=== PATIENT | male | born 1990 | race Caucasian/White ===

== ENCOUNTER 2023-01-22 19:21 | Emergency (ER) | payer BC, SELFPAY ==
[2023-01-22 19:23] VITALS: BP 139/96; PULSE 107; RESP 18; TEMP 36.6; O2SAT 97; BMI 21.6
[2023-01-22 19:27] VITALS: BP 139/96; PULSE 107; RESP 18; TEMP 36.6; O2SAT 97
== END 2023-01-22 21:07 | disposition left against medical advice (07) ==
LOC: ED 21:12
PROVIDERS: PCP Family Medicine
DX: Z53.21 Procedure and treatment not carried out due to patient leaving prior to being seen by health care provider (principal)

== ENCOUNTER 2025-01-06 19:10 | Inpatient (IN) | payer MEDICAID, SELFPAY ==
[2025-01-06] VITALS (7 sets, daily range): BP systolic 118–160; BP diastolic 70–93; PULSE 79–114; RESP 12–18; TEMP 36.6; O2SAT 94–99; BMI 24.0; BMI 22.9
[2025-01-06 20:34] LABS: Absolute Lymphocyte Count 1.22 X10^3/uL (0.83-4.51); Basophil# 0.03 X10^3/uL; Basophil% 0.8 % (0-1); Eosinophil# 0.04 X10^3/uL; Eosinophils% 1.1 % (0-5); Hematocrit 48.5 % (40-54); Hemoglobin 17.1 g/dL (13.0-16.5); Lymphocyte # 1.22 X10^3/ul (0.83-4.51); Lymphocyte % 33.5 % (19-41); Mean Corp Hgb Conc 35.3 g/dL (32-36); Mean Corpuscular Hgb 35.4 pg (27.0-32.0); Mean Corpuscular Volume 100.4 fL (80-94); Mean Platelet Vol. 8.7 fl (6.2-12.0); Monocyte# 0.33 X10^3/uL; Monocyte% 9.1 % (0-10); NRBC Flagged by Analyzer 0 % (0-5); Neutrophil # 2.01 X10^3/uL (2.7-7.7); Neutrophil % 55.2 % (47-70); Platelet Count 213 K/mm3 (150-450); RBC Distribution Width CV 12.2 % (11.6-14.6); RBC Distribution Width SD 45.9 fl (35.1-43.9); Red Blood Count 4.83 M/mm3 (4.6-6.2); White Blood Count 3.6 K/mm3 (4.4-11.0)
[2025-01-06 20:51] LABS: Anion Gap 9 (5-15); BUN 11 mg/dL (7-18); BUN/Creat Ratio 11.2 RATIO (10-20); Calcium,Total 8.8 mg/dL (8.5-10.1); Chloride 101 mmol/L (98-107); Creatinine, Serum 0.98 mg/dL (0.70-1.30); EST Glomerular Filtration Rate 94 mL/min (>60); Est Glom Filt Rate - Afr Amer 114 mL/min (>60); Glucose 98 mg/dL (74-106); Potassium 4.1 mmol/L (3.5-5.1); Sodium Level 138 mmol/L (136-145)
--- NOTE | 2025-01-06 20:58 | EX.ED.DYSGE1 ---
HPI History of Present Illness Chief Complaint: ETOH Intox PFSH PFSH Medical History Anxiety and depression Tobacco use Alcohol abuse Home Medications ?Medication ?Instructions ?Recorded ?Last Taken ?Type NK 01/06/25 Unknown History Allergy/AdvReac Type Severity Reaction Status Date / Time raspberry Allergy Anaphylaxis Verified 01/06/25 19:12 Family History (Updated 01/06/25 @ 22:[address] Emperatriz Jin MD) Mother No problems noted. Father Alcohol abuse Surgical History History of hand surgery Social History (Updated 01/06/25 @ 22:[address] Emperatriz Jin MD) household members: other details: Lives with various friends, sleeps on their couches. Smoking Status: Current every day smoker tobacco type: cigarettes Smoking packs per day: 0.5 Smoking cigarettes per day: 10.0, e-cigarettes and smokeless tobacco Smokeless tobacco user: chewing tobacco and other alcohol intake: current alcohol intake frequency: 3 or more drinks per day details: 2-3/5 of vodka daily. substance use type: does not use EXAM Physical Exam Const Vital Signs: 01/06/25 19:12 01/06/25 20:10 01/06/25 20:18 Temperature 97.8 F Temperature Source Temporal Pulse Rate 114 H 102 H 104 H Respiratory Rate 18 14 18 Blood Pressure 160/93 H 118/70 125/79 H Blood Pressure Mean 115 86 94 Blood Pressure Source Monitor Blood Pressure Position Semi-Fowlers Blood Pressure Location Right Arm Pulse Ox 96 99 95 Oxygen Delivery Method Room Air Room Air Room Air 01/06/25 21:00 Temperature Temperature Source Pulse Rate 86 Respiratory Rate 18 Blood Pressure 139/81 H Blood Pressure Mean 100 Blood Pressure Source Blood Pressure Position Blood Pressure Location Pulse Ox 94 Oxygen Delivery Method Room Air MDM MDM MDM Narrative Medical decision making narrative: HISTORY OF PRESENT ILLNESS: 34-year-old male presents with concern for alcohol withdrawal requesting alcohol detox. Patient states he drinks approximately 2 to 3 fifths of vodka daily. His last drink was earlier today (approximately 6 PM). REVIEW OF SYSTEMS: Pertinent positives: Alcohol tox case Pertinent negatives: Chest pain, head trauma PHYSICAL EXAM: Nursing triage notes reviewed, Vital signs reviewed Constitutional: please see mdm HENT: MMM Eyes: Pupils equal round and reactive to light, Extraocular muscles intact Neck: No stridor, no JVD, full neck ROM Lungs: Clear to auscultation, No wheezing or rales. No increased work of breathing, no conversational dyspnea, no accessory muscle use, no nasal flaring. No respiratory distress noted Heart: Regular rate and rhythm, No murmurs, No rubs and No gallops, 2+ distal pulses (radial, femoral, posterior tibial) in all extremities Abdomen: Soft, there is no tenderness, rigidity, rebound or guarding, no obvious peritoneal signs, no palpable pulsatile abdominal masses, no auscultated abdominal bruit : No CVAT Extremities: No edema Neuro: No new focal neurological deficits, cranial nerves II through XII intact, 5/5 strength in all present extremities. Intact sensation to light touch in all present extremities, 2+ reflexes bilateral patella tendons. Skin: No rash or lesions noted MEDICAL DECISION MAKING: Chief Complaint: Alcohol intoxication External records reviewed: Reviewed prior ED records MDM Narrative: Patient was initially hemodynamically stable, tachycardic otherwise saturating well on room air. Exam unremarkable. Medical clearance labs were obtained. Patient was medically cleared. He is appropriate for detox admission CBC without leukocytosis, severe anemia, no thrombocytopenia. LFTs without evidence of severe alcohol abuse BMP without evidence of significant electrolyte abnormalities, no anion gap, no acute kidney injury. Urine tox cream negative Serum alcohol markedly elevated No signs of alcohol withdrawal Discussed with Dr. Jin. The patient and/or family, caregivers express understanding. The patient and/or family, caregivers agrees with the plan. Shared decision making: I will have a discussion with the patient and or visitors regarding risk/benefits of further testing or admission. They will be made aware of of the risk/benefits inherent in this decision they will be given the opportunity to voice understanding. Total critical care time today provided was at least 0 minutes. This excludes separately billable procedures. Critical care time (if documented) is secondary to the patient having high probability of clinically significant/life threatening deterioration in the patient's condition which required my urgent intervention. Impression: 1. Alcohol abuse 2. Encounter for detoxification admission 3. Elevated liver enzyme Dispo: Admit to floor This note was generated with [employer] dictation software. It may contain incorrect words, spelling, and punctuation that were not noted in review of the chart prior to signing. Lab Data Labs: Laboratory Results - last 24 hr 01/06/25 01/06/25 20:10 20:15 WBC 3.6 L RBC 4.83 Hgb 17.1 H Hct 48.5 MCV 100.4 H MCH 35.4 H MCHC 35.3 RDW Std Deviation 45.9 H RDW Coeff of Camille 12.2 Plt Count 213 MPV 8.7 Immature Gran % (Auto) 0.300 Neut % (Auto) 55.2 Lymph % (Auto) 33.5 [place] % (Auto) 9.1 Eos % (Auto) 1.1 Baso % (Auto) 0.8 Absolute Neuts (auto) 2.0 Absolute Lymphs (auto) 1.22 Nucleated RBC % 0 Sodium 138 Potassium 4.1 Chloride 101 Carbon Dioxide 27.0 Anion Gap 9 BUN 11 Creatinine 0.98 Estim Creat Clear Calc 122.30 Est GFR (MDRD) Af Amer 114 Est GFR (MDRD) Non-Af 94 BUN/Creatinine Ratio 11.2 Glucose 98 Calcium 8.8 Urine Opiates Screen NEGATIVE Urine Methadone Screen NEGATIVE Ur Barbiturates Screen NEGATIVE Ur Phencyclidine Scrn NEGATIVE Ur Amphetamines Screen NEGATIVE MDMA (Ecstasy) Screen NEGATIVE U Benzodiazepines Scrn NEGATIVE Urine Cocaine Screen NEGATIVE U Cannabinoids Screen NEGATIVE Ur Drug Screen Comment Ethyl Alcohol 417.0 H* Discharge Plan Disposition Disposition: Acute Care Hospital [facility] Discharge Date/Time: 01/06/25 23:00
[2025-01-06 21:00] LABS: Amphetamine Urine NEGATIVE (<1000 ng/mL); Barbiturate Urine VISTA NEGATIVE (< 200 ng/mL); Benzodiazepine Urine VISTA NEGATIVE (< 200 ng/mL); Cocaine Urine VISTA NEGATIVE (< 300 ng/mL); Ecstacy Urine VISTA NEGATIVE (< 500 ng/mL); Methadone Urine VISTA NEGATIVE (< 300 ng/mL); Opiates Urine NEGATIVE (< 300 ng/mL); PCP Urine NEGATIVE (< 25 ng/mL); THC Urine VISTA NEGATIVE (< 50 ng/mL); Vista UDS pH Range 6
--- NOTE | 2025-01-06 21:39 | HP.PCM.HOS_ITS ---
HPI - General General Date of Admission: 01/06/25 Date of Service: 01/06/25 Chief Complaint: EtOH withdrawal, EtOH abuse HPI Narrative The patient is a 34 y/o M w/ PMHx: Anxiety and Depression not taking medications but previously on, Tobacco use (Cigarette and chew), Alcohol abuse who presents to the [facility] ED on 01/06/25 w/ reported interest in attaining sober status. He notes normally he drinks 2-3/5 of vodka daily. He notes his last intake was ~ 6 pm prior to ED arrival. He denies any withdrawal symptoms. Workup in the ED included T97.8, heart rate 114, BP 160/93, respiratory rate 18, 96% room air with most recent repeat vitals heart rate 86, BP 139/81, respiratory rate 18, 94% room air, CBC with WBC 3.6, hemoglobin 17.1, MCV 100.4, platelet 213 without marked shift, unremarkable BMP, UDS negative, ethyl alcohol 417. [facility] Medical History Anxiety and depression Tobacco use Alcohol abuse Home Medications ?Medication ?Instructions ?Recorded ?Last Taken ?Type NK 01/06/25 Unknown History Allergy/AdvReac Type Severity Reaction Status Date / Time raspberry Allergy Anaphylaxis Verified 01/06/25 19:12 Family History (Updated 01/06/25 @ 22:[address] Emperatriz Jin MD) Mother No problems noted. Father Alcohol abuse Surgical History History of hand surgery Social History (Updated 01/06/25 @ 22:[address] Emperatriz Jin MD) household members: other details: Lives with various friends, sleeps on their couches. Smoking Status: Current every day smoker tobacco type: cigarettes Smoking packs per day: 0.5 Smoking cigarettes per day: 10.0, e-cigarettes and smokeless tobacco Smokeless tobacco user: chewing tobacco and other alcohol intake: current alcohol intake frequency: 3 or more drinks per day details: 2-3/5 of vodka daily. substance use type: does not use ROS ROS Narrative Admission Review of Systems: CONSTITUTIONAL: No weight loss, fever, chills, + weakness or fatigue. HEENT: Eyes: No visual loss, blurred vision, double vision or yellow sclerae. Ears, Nose, Throat: No hearing loss, sneezing, congestion, runny nose or sore throat. SKIN: No rash or itching, lesions, wounds. CARDIOVASCULAR: No chest pain, chest pressure or chest discomfort, palpitations, edema, orthopnea, syncopal events. RESPIRATORY: No shortness of breath, cough or sputum, wheezing, hemoptysis. GASTROINTESTINAL: No anorexia, nausea, vomiting or diarrhea, abdominal pain, melena, BRBPR. GENITOURINARY: No dysuria, frequency, urgency or retention. NEUROLOGICAL: + Chronic left hand paresthesias. No headache, dizziness, syncope, paralysis, ataxia, focal weakness, change in bowel or bladder control, seizure. MUSCULOSKELETAL: + muscle, back pain, joint pain or stiffness. HEMATOLOGIC: No anemia, bleeding or bruising. LYMPHATICS: No enlarged nodes. No history of splenectomy. PSYCHIATRIC: + History of anxiety and depression. ENDOCRINOLOGIC: No reports of sweating, cold or heat intolerance. No polyuria or polydipsia. ALLERGIES: + History of anaphylaxis. Vital Signs Vital Signs Vital Signs: 01/06/25 19:12 01/06/25 20:10 01/06/25 20:18 Temperature 97.8 F Temperature Source Temporal Pulse Rate 114 H 102 H 104 H Respiratory Rate 18 14 18 Blood Pressure 160/93 H 118/70 125/79 H Blood Pressure Mean 115 86 94 Blood Pressure Source Monitor Blood Pressure Position Semi-Fowlers Blood Pressure Location Right Arm Pulse Ox 96 99 95 Oxygen Delivery Method Room Air Room Air Room Air 01/06/25 21:00 Temperature Temperature Source Pulse Rate 86 Respiratory Rate 18 Blood Pressure 139/81 H Blood Pressure Mean 100 Blood Pressure Source Blood Pressure Position Blood Pressure Location Pulse Ox 94 Oxygen Delivery Method Room Air Weight Weight: 182 lb 11.2 oz Body Mass Index (BMI) 24.0 Physical Exam Narrative Physical Examination: General: Awake, alert, oriented x 3 and cooperative, seated upright in the ED bed, fatigued, denies any acute alcohol withdrawal symptoms Skin: Normal color, normal turgor, no icterus, no cyanosis. HEENT: AT/NC, EOMI, PERRLA, moderately dry MM, no carotid bruits or JVD noted. Lungs: Mildly diminished, greater bases, appropriate effort, occasional end expiratory wheeze. Heart: Mildly tachycardic with regular rhythm; no gallop, rub audible. Abdomen: Soft, NTTP, ND, hyperactive BS, no appreciated HSM. Extremities: No cyanosis, clubbing, or edema. Neurological: Patient awake, alert, oriented as noted, cognitive function intact; pupils equally reactive to light and accommodation, cranial nerves gross normal, moving all 4 extremities, no focal deficits, strength preserved although patient is fatigued as intoxicant. Psychiatric: Affect appears fatigued, no acute evidence of depressive or anxiety feelings but does have underlying history. Results Lab / Micro Data 01/06/25 20:10 01/06/25 20:10 Labs: Laboratory Results - last 24 hr 01/06/25 20:10: WBC 3.6 L, RBC 4.83, Hgb 17.1 H, Hct 48.5, MCV 100.4 H, MCH 35.4 H, MCHC 35.3, RDW Std Deviation 45.9 H, RDW Coeff of Camille 12.2, Plt Count 213, MPV 8.7, Immature Gran % (Auto) 0.300, Neut % (Auto) 55.2, Lymph % (Auto) 33.5, [place]ley % (Auto) 9.1, Eos % (Auto) 1.1, Baso % (Auto) 0.8, Absolute Neuts (auto) 2.0, Absolute Lymphs (auto) 1.22, Nucleated RBC % 0, Sodium 138, Potassium 4.1, Chloride 101, Carbon Dioxide 27.0, Anion Gap 9, BUN 11, Creatinine 0.98, Estim Creat Clear Calc 122.30, Est GFR (MDRD) Af Amer 114, Est GFR (MDRD) Non-Af 94, BUN/Creatinine Ratio 11.2, Glucose 98, Calcium 8.8, Ethyl Alcohol 417.0 H* 01/06/25 20:15: Urine Opiates Screen NEGATIVE, Urine Methadone Screen NEGATIVE, Ur Barbiturates Screen NEGATIVE, Ur Phencyclidine Scrn NEGATIVE, Ur Amphetamines Screen NEGATIVE, MDMA (Ecstasy) Screen NEGATIVE, U Benzodiazepines Scrn NEGATIVE, Urine Cocaine Screen NEGATIVE, U Cannabinoids Screen NEGATIVE, Ur Drug Screen Comment Assessment & Plan Assessment/Plan (1) Admitted to alcohol detoxification center: PLAN: Plan The patient is a 34 y/o M w/ PMHx: Anxiety and Depression not taking medications but previously on, Tobacco use (Cigarette and chew), Alcohol abuse who presents to the [facility] ED on 01/06/25 w/ reported interest in attaining sober status. #1. Acute EtOH Abuse with Impending Withdrawal: Will admit to [facility], routine labs obtained in the ED upon presentation, will request liver panel additionally. Given interest in sobriety, will initiate and continue on protocol with taper course of Phenobarbital, as needed gabapentin, Catapres, Bentyl, Vistaril, IV fluids, IV antiemetics, Tylenol as needed for pain. Will consult Case management for assistance for transition to next level of rehabilitation care. Mag, phos pending. Maintain on CIWA protocol concurrently. #2. Elevated BP without hypertensive diagnosis: Upon arrival initial BP elevated above goal, likely secondary to acute presentation, improved, continue to monitor. #3. Leukopenia, acute: Admission CBC with WBC 3.6, suspect likely secondary to alcohol abuse, encourage continued outpatient follow-up and establishment with primary care physician. #4. Anxiety and depression: Notes history but took himself off medications and has not taken them in some time, case management/180 consulted and would benefit from counseling and therapy as this likely is contributing to his alcohol abuse. #5. Tobacco Abuse: Encouraged cessation, inpatient consultation per RT, NR if desired. #6. DVT prophylaxis: Low risk, encourage ambulation. Charges/Coding Visit Charges Inpatient E&M: 86056 Init Hosp L2
[2025-01-06 22:07] LABS: AST(SGOT) 466 U/L (15-37); Alanine Aminotransfer ALT/SGPT 367 U/L (16-61); Albumin, Serum 4.1 g/dL (3.2-5.0); Alkaline Phosphatase 118 U/L (45-117); Bilirubin, Direct 0.14 mg/dL (0.00-0.30); Globulin 4.3 g/dL (2.2-4.2); Magnesium 2.3 mg/dL (1.6-2.6); Phosphorus 3.4 mg/dL (2.5-4.9); Protein, Total 8.4 g/dL (6.4-8.2)
[2025-01-06] MEDS: Phenobarbital 32.4 MG Tablet 64.8 MG PO (23:22)
[2025-01-06] MEDS: Gabapentin 300 MG Capsule PO (23:22)
[2025-01-06] MEDS: Ondansetron 8 MG Tablet PO (23:22)
[2025-01-06] MEDS: traZODone 100 MG Tablet PO (23:22)
[2025-01-07] MEDS: Phenobarbital 32.4 MG Tablet 64.8 MG PO ×5 (03:03→19:33)
[2025-01-07] MEDS: hydrOXYzine PAM 25 MG Capsule 50 MG PO ×2 (03:03→13:11)
[2025-01-07 03:06] VITALS: BP 114/70; PULSE 77; RESP 16; TEMP 36.5; O2SAT 96
[2025-01-07] MEDS: Gabapentin 300 MG Capsule PO (06:44)
[2025-01-07 09:49] LABS: ALB/GLOB Ratio 0.9 RATIO (0.9-2.4); AST(SGOT) 369 U/L (15-37); Alanine Aminotransfer ALT/SGPT 313 U/L (16-61); Albumin, Serum 3.5 g/dL (3.2-5.0); Alkaline Phosphatase 104 U/L (45-117); Anion Gap 9 (5-15); BUN 11 mg/dL (7-18); BUN/Creat Ratio 12.1 RATIO (10-20); Calcium,Total 8.4 mg/dL (8.5-10.1); Chloride 101 mmol/L (98-107); Creatinine, Serum 0.91 mg/dL (0.70-1.30); EST Glomerular Filtration Rate 103 mL/min (>60); Est Glom Filt Rate - Afr Amer 124 mL/min (>60); Estimated Creatinine Clearance 133.52 ml/min; Globulin 3.9 g/dL (2.2-4.2); Glucose 75 mg/dL (74-106); Potassium 3.9 mmol/L (3.5-5.1); Protein, Total 7.4 g/dL (6.4-8.2); Sodium Level 137 mmol/L (136-145)
[2025-01-07 10:28] VITALS: BP 127/80; PULSE 89; RESP 14; TEMP 37.4; O2SAT 92
[2025-01-07] MEDS: Thiamine Hydrochloride 100 MG Tablet PO (10:31)
[2025-01-07] MEDS: Multivitamins,Ther W-Minerals Tablet 1 TABLET PO (10:31)
[2025-01-07] MEDS: Folic Acid 1 MG Tablet PO (10:31)
[2025-01-07] MEDS: Ibuprofen 600 MG Tablet PO (10:35)
[2025-01-07] MEDS: 0.9% Saline Lock 10 ML Syringe IV (10:37)
[2025-01-07] MEDS: Acetaminophen 325 MG Tablet 650 MG PO (13:11)
--- NOTE | 2025-01-07 14:34 | PN_ITS ---
Subjective Subjective Patient seen and examined. He had no active complaints and felt well. He denied any shakes, tremors, palpitations, nausea, vomiting or any other symptoms. Review of systems is otherwise negative. Objective Data Objective Data Vital Signs: Vital Signs Temp Pulse Resp BP Pulse Ox O2 Del Method 99.3 F H 89 14 127/80 H 92 Room Air 01/07/25 10:28 01/07/25 10:28 01/07/25 10:28 01/07/25 10:28 01/07/25 10:28 01/07/25 10:44 Oxygen Delivery Method Room Air Weight: 178 lb 9.191 oz Body Mass Index (BMI) 22.9 Intake & Output: Intake and Output for Last 24 Hours 01/05/25 01/06/25 01/07/25 23:59 23:59 23:59 Intake Total 600 / 600 Balance 600 / 600 Lab / Micro Data 01/06/25 20:10 01/07/25 08:50 Labs: Laboratory Results - last 24 hr 01/06/25 20:10: WBC 3.6 L, RBC 4.83, Hgb 17.1 H, Hct 48.5, MCV 100.4 H, MCH 35.4 H, MCHC 35.3, RDW Std Deviation 45.9 H, RDW Coeff of Camille 12.2, Plt Count 213, MPV 8.7, Immature Gran % (Auto) 0.300, Neut % (Auto) 55.2, Lymph % (Auto) 33.5, [place] % (Auto) 9.1, Eos % (Auto) 1.1, Baso % (Auto) 0.8, Absolute Neuts (auto) 2.0, Absolute Lymphs (auto) 1.22, Nucleated RBC % 0, Sodium 138, Potassium 4.1, Chloride 101, Carbon Dioxide 27.0, Anion Gap 9, BUN 11, Creatinine 0.98, Estim Creat Clear Calc 122.30, Est GFR (MDRD) Af Amer 114, Est GFR (MDRD) Non-Af 94, BUN/Creatinine Ratio 11.2, Glucose 98, Calcium 8.8, Ethyl Alcohol 417.0 H* 01/06/25 20:15: Urine Opiates Screen NEGATIVE, Urine Methadone Screen NEGATIVE, Ur Barbiturates Screen NEGATIVE, Ur Phencyclidine Scrn NEGATIVE, Ur Amphetamines Screen NEGATIVE, MDMA (Ecstasy) Screen NEGATIVE, U Benzodiazepines Scrn NEGATIVE, Urine Cocaine Screen NEGATIVE, U Cannabinoids Screen NEGATIVE, Ur Drug Screen Comment 01/06/25 21:46: Phosphorus 3.4, Magnesium 2.3, Total Bilirubin 0.30, Direct Bilirubin 0.14, AST 466 H, ALT 367 H, Alkaline Phosphatase 118 H, Total Protein 8.4 H, Albumin 4.1, Globulin 4.3 H 01/07/25 08:50: Sodium 137, Potassium 3.9, Chloride 101, Carbon Dioxide 27.0, Anion Gap 9, BUN 11, Creatinine 0.91, Estim Creat Clear Calc 133.52, Est GFR (MDRD) Af Amer 124, Est GFR (MDRD) Non-Af 103, BUN/Creatinine Ratio 12.1, Glucose 75, Calcium 8.4 L, Total Bilirubin 0.60, AST 369 H, ALT 313 H, Alkaline Phosphatase 104, Total Protein 7.4, Albumin 3.5, Globulin 3.9, Albumin/Globulin Ratio 0.9 Physical Exam Const alert, oriented x3, no apparent distress and well nourished General Appearance: cooperative and well developed HEENT normocephalic, head/scalp atraumatic, moist oral mucous membranes, oropharynx normal and gingiva normal Eyes PERRL and EOMs intact bilaterally Neck no lymphadenopathy, supple and no JVD Lymph Lymphatic: no lymphadenopathy noted and no lymphedema noted Resp normal respiratory effort, normal air movement and clear to auscultation bilaterally Cardio regular rate, regular rhythm, S1 normal heart sound, S2 normal heart sound and no murmurs GI normal to inspection, nondistended, normoactive bowel sounds, soft to palpation, non-tender and non-distended Extremity normal capillary refill, no clubbing, cyanosis or edema and no calf tenderness General Extremity: no tenderness to palpation of joints or extremities Skin General Skin Exam: no breakdown Neuro CN's II-XII intact bilaterally, no focal motor deficits, no sensory deficits noted and deep tendon reflexes 2+ bilaterally Motor Exam: strength 5/5 throughout and general weakness Psych thought process normal, cooperative and affect normal Appearance: appropriate Assessment & Plan Assessment/Plan (1) Admitted to alcohol detoxification center: PLAN: Plan #Acute alcohol withdrawal * on alcohol withdrawal protocol with phenobarbital * on thiamine, folic acid and multivite. Adjunctive meds for symptomatic relief. * monitor CIWA score * #Elevated liver enzymes: AST and ALT are trending downwards. Likely due to chronic alcohol abuse. Will trend and monitor. DVT prophylaxis: low risk, encourage to ambulate Charges/Coding Visit Charges Inpatient E&M: 35817 Subs Hosp L2
[2025-01-07 15:13] VITALS: BP 120/72; PULSE 68; RESP 15; TEMP 36.7; O2SAT 94
--- NOTE | 2025-01-07 15:41 | CHAPLAIN ---
Type of Pastoral Visit _x__ Initial Visit ___ Follow-up Visit ___ On-call Visit ___ General Patient Visit ___ Spiritual Assessment ___ Family Conference ___ Bereavement ___ Rapid Response ___ Code Blue ___ Other (describe below) Pastoral Care Referral From _x__ Patient ___ Family ___ Nurse ___ Physician ___ Spray Machine Tender ___ Memorial Designer ___ Other (describe below) Sacrament/Intervention _x__ Active listening ___ Anointing ___ Church ___ Bereavement ___ Communion _x__ Kayla exploration ___ _x__ Life review _x__ Prayer ___ Reconciliation ___ Sacrament of Sick _x__ Supportive presence ___ Wedding ___ Other (describe below) Pastoral Comments patient is here for alcohol detox and is open to having spiritual care support; pt describes a previous [place] [facility] [place] he had six months of sobriety; pt was laid off of work and lost privileges to seeing his daughter which led to his poor decisions and return to heavy drinking; pt expresses disappointment and shame of self in letting this happen and desires to start over; pt states that he needs to get back to his religious support and turning away from 'peer pressure'; pt goal is to get steady work again and to be able to see his daughter; pt is open and willing to receive help through prayer and emotional expression
[2025-01-07 19:38] VITALS: BP 133/89; PULSE 60; RESP 13; TEMP 36.4; O2SAT 96
[2025-01-08] VITALS (9 sets, daily range): BP systolic 118–136; BP diastolic 81–90; PULSE 52–96; RESP 14–18; TEMP 36.3–36.7; O2SAT 94–98
[2025-01-08] MEDS: Phenobarbital 32.4 MG Tablet 64.8 MG PO ×7 (01:16→23:26)
[2025-01-08] MEDS: 0.9% Saline Lock 10 ML Syringe IV (01:18)
[2025-01-08] MEDS: hydrOXYzine PAM 25 MG Capsule 50 MG PO ×2 (01:23→09:07)
[2025-01-08] MEDS: Multivitamins,Ther W-Minerals Tablet 1 TABLET PO (08:22)
[2025-01-08] MEDS: Folic Acid 1 MG Tablet PO (08:22)
[2025-01-08] MEDS: Thiamine Hydrochloride 100 MG Tablet PO (08:22)
[2025-01-08] MEDS: Gabapentin 300 MG Capsule PO (09:07)
--- NOTE | 2025-01-08 11:26 | ADDICTION ---
Clinician met with pt to complete RAMP assessments and discuss d/c planning. Pt had been drinking from morning until night. His alcohol level in the ED was 417. Client initially agree to follow up with outpatient treatment but then after more discussion he decided to do residential tx. A referral was made to [facility] and the plan is for them to pick him up tomorrow morning. He wanted his roommate Jeannie to bring his clothes and phone. Her number is [phone]. i left a vm.
--- NOTE | 2025-01-08 11:54 | PN_ITS ---
Subjective Subjective Patient seen and examined. HE had no complaints and had an uneventful night. Review of systems otherwise negative. Objective Data Objective Data Vital Signs: Vital Signs Temp Pulse Resp BP Pulse Ox O2 Del Method 97.6 F L 63 14 134/82 H 94 Room Air 01/08/25 08:16 01/08/25 08:16 01/08/25 08:16 01/08/25 08:16 01/08/25 08:22 01/08/25 08:22 Oxygen Delivery Method Room Air Weight: 178 lb 9.191 oz Body Mass Index (BMI) 22.9 Intake & Output: Intake and Output for Last 24 Hours 01/06/25 01/07/25 01/08/25 23:59 23:59 23:59 Intake Total 600 / 1400 800 / 800 Balance 600 / 1400 800 / 800 Lab / Micro Data 01/06/25 20:10 01/07/25 08:50 Physical Exam Const alert, oriented x3, no apparent distress and well nourished General Appearance: cooperative and well developed HEENT normocephalic, head/scalp atraumatic, moist oral mucous membranes, oropharynx normal and gingiva normal Eyes PERRL and EOMs intact bilaterally Neck no lymphadenopathy, supple and no JVD Lymph Lymphatic: no lymphadenopathy noted and no lymphedema noted Resp normal respiratory effort, normal air movement and clear to auscultation bilaterally Cardio regular rate, regular rhythm, S1 normal heart sound, S2 normal heart sound and no murmurs GI normal to inspection, nondistended, normoactive bowel sounds, soft to palpation, non-tender and non-distended Extremity normal capillary refill, no clubbing, cyanosis or edema and no calf tenderness General Extremity: no tenderness to palpation of joints or extremities Skin General Skin Exam: no breakdown Neuro CN's II-XII intact bilaterally, no focal motor deficits, no sensory deficits noted and deep tendon reflexes 2+ bilaterally Motor Exam: strength 5/5 throughout and general weakness Psych thought process normal, cooperative and affect normal Appearance: appropriate Assessment & Plan Assessment/Plan (1) Admitted to alcohol detoxification center: PLAN: Plan #Acute alcohol withdrawal * on alcohol withdrawal protocol with phenobarbital * on thiamine, folic acid and multivite. Adjunctive meds for symptomatic relief. * monitor CIWA score * #Elevated liver enzymes: * AST and ALT are trending downwards. Likely due to chronic alcohol abuse. Will trend and monitor. * will benefit from follow up with gastroenterology on outpatient basis. Will check hepatitis profile also DVT prophylaxis: low risk, encourage to ambulate Charges/Coding Visit Charges Inpatient E&M: 14712 Subs Hosp L2
[2025-01-08 15:19] LABS: Hepatitis B Surface Antibody Non-Reactive; Hepatitis B Surface Antigen Non-Reactive (Nonreactive); Hepatitis C Antibody Non-Reactive (Nonreactive)
--- NOTE | 2025-01-08 16:03 | CHAPLAIN ---
Type of Pastoral Visit ___ Initial Visit _x__ Follow-up Visit ___ On-call Visit ___ General Patient Visit ___ Spiritual Assessment ___ Family Conference ___ Bereavement ___ Rapid Response ___ Code Blue ___ Other (describe below) Pastoral Care Referral From _x__ Patient ___ Family ___ Nurse ___ Physician ___ Salon Shampoo Assistant ___ Work Order Detailer ___ Other (describe below) Sacrament/Intervention _x__ Active listening ___ Anointing ___ Pentecostalism ___ Bereavement ___ Communion _x__ Kayla exploration ___ _x__ Life review _x__ Prayer ___ Reconciliation ___ Sacrament of Sick _x__ Supportive presence ___ Wedding ___ Other (describe below) Pastoral Comments patient had welcomed a follow up visit; patient was awake and watching TV; pt is given opportunity to share about his life, the next steps, and what he hopes for the future; pt is open to share many details about his life and how he has managed to this point; pt admits that I have nothing to show for my life at this point, except that I have a daughter that I don't even see; pt is asked about what he hopes from his life and that he can make plans to accomplish that; pt admits that he had some significant anxiety this morning when thinking about going to the rehab for 60 days; pt has accepted this plan; pt acknowledges again today that he needs to reconnect with God because when I stopped doing that I went right back to drinking again and all this happened; patient welcomes a prayer and gives thanks for the support shown
[2025-01-08] MEDS: Acetaminophen 325 MG Tablet 650 MG PO (16:10)
[2025-01-09 03:13] VITALS: BP 118/92; PULSE 57; RESP 16; TEMP 36.3; O2SAT 100
[2025-01-09] MEDS: Phenobarbital 32.4 MG Tablet 64.8 MG PO ×3 (03:17→13:43)
[2025-01-09 07:25] VITALS: O2SAT 100
[2025-01-09] MEDS: Folic Acid 1 MG Tablet PO (08:34)
[2025-01-09] MEDS: Multivitamins,Ther W-Minerals Tablet 1 TABLET PO (08:34)
[2025-01-09] MEDS: Thiamine Hydrochloride 100 MG Tablet PO (08:34)
[2025-01-09 11:00] VITALS: RESP 16
--- NOTE | 2025-01-09 11:18 | DCINST_ITS ---
Discharge Instructions Diet Discharge Diet: Low fat / Low cholesterol DC O2, CPAP, BIPAP needs Home O2 Discharge instructions: No Dressing / Incision Discharge Activity: Return to Normal Activity Weight Bearing Status: Weight bearing as tolerated Dressing / Incision Call your doctor if you observe: Fever of 101 or Higher, Shortness of breath, Dizziness, Swelling in the ankles and Chest pain Follow Up Care Test Results: Test results from this visit will be discussed in further detail at your follow- up appointment, if applicable. Discharge Plan Admission Admit Date/Time: 01/06/25 21:44 Primary Reason for Your Visit: acute alcohol withdrawal Attending Provider: Yeesnia Khan Primary Care Provider: Care Physician,No Primary Consulting Providers: Emperatriz Jin Instructions Patient Instructions: Alcohol Addiction, Alcohol Withdrawal: What to Expect Discharge Orders/Prescriptions Prescriptions: No Action NK Referrals / Follow Up: Rodger Moya MD [Non-Staff] - Within 1 Week Care Physician,No Primary [Primary Care Provider] - Disposition Disposition (needs filled in before D/C Order can be placed): Home, Self Care
--- NOTE | 2025-01-09 11:19 | PCM.DC.SUM ---
Providers Date of Admission: 01/06/25 Date of Discharge: 01/09/25 Primary Care Physician: No Primary Care Phys Reason For Visit: ETOH DETOX Diagnosis Discharge Diagnosis (1) Admitted to alcohol detoxification center: Status: Acute Plan #Acute alcohol withdrawal on alcohol withdrawal protocol with phenobarbital on thiamine, folic acid and multivite. Adjunctive meds for symptomatic relief. monitor CIWA score #Elevated liver enzymes: AST and ALT are trending downwards. Likely due to chronic alcohol abuse. Will trend and monitor. will benefit from follow up with gastroenterology on outpatient basis. Will check hepatitis profile also DVT prophylaxis: low risk, encourage to ambulate Medications at Discharge Home Medications NK 01/06/25 Hospital Course Operations None Procedures None Summary of Care Provided Minutes Spent on Discharge: 45 Hospital Course: Patient is a 34-year-old male with a past medical history as outlined including chronic alcohol dependence as well as anxiety and depression was admitted to the ED on 01/06/2025 for help to obtain a sober status with regards to alcohol. Usually drinks about 2/3-1/5 of vodka daily. His last intake was about 6 PM on the day of admission. He denied any withdrawal symptoms on the day of admission. Serum alcohol level was 470 and urine drug screen was negative. He was admitted and managed for acute alcohol dependence with impending withdrawal. He was started on alcohol withdrawal protocol with phenobarbital. Tolerated 3-day detox process. Of note his liver enzymes were elevated but started trending downwards. Hepatitis B and C screens were negative so this was likely due to his alcohol use disorder. Patient was agreeable to go to an inpatient alcohol rehab facility and so was discharged there on 01/09/2025. He is follow-up with a primary care doctor within 1 to 2 weeks. Patient seen and examined prior to discharge. He had no complaints. He had had an uneventful night and review of systems otherwise negative. Labs and vitals reviewed. Home medication reviewed and reconciled. Physical Exam Const alert, oriented x3, no apparent distress and well nourished General Appearance: cooperative, comfortable, well kempt and well developed Orientation / Consciousness: awake Exam Limitations: no limitations HEENT normocephalic, head/scalp atraumatic, hearing grossly normal bilaterally, moist oral mucous membranes, oropharynx normal and gingiva normal Mouth: oral and palatal mucosa normal Eyes PERRL, EOMs intact bilaterally and conjunctivae normal Neck no lymphadenopathy, supple and no JVD Lymph Lymphatic: no lymphadenopathy noted and no lymphedema noted Resp normal respiratory effort, normal air movement and clear to auscultation bilaterally Cardio regular rate, regular rhythm, S1 normal heart sound, S2 normal heart sound and no murmurs GI normal to inspection, nondistended, normoactive bowel sounds, soft to palpation, non-tender and non-distended Extremity normal to inspection, full ROM, normal capillary refill, no clubbing, cyanosis or edema and no calf tenderness General Extremity: no tenderness to palpation of joints or extremities Skin no rashes or lesions noted General Skin Exam: no breakdown Neuro oriented x3, CN's II-XII intact bilaterally, moves all extremities, no focal motor deficits, no sensory deficits noted and deep tendon reflexes 2+ bilaterally Motor Exam: strength 5/5 throughout and general weakness Psych thought process normal, cooperative and affect normal Appearance: appropriate Weight / BMI Weight Weight: 178 lb 9.191 oz Body Mass Index (BMI) 22.9 ABG / Lab / Microbiology Data 01/06/25 20:10 01/07/25 08:50 Laboratory: Laboratory Results - last 24 hr 01/08/25 13:00: Hep Bs Antigen Non-Reactive, Hep Bs Antibody Non-Reactive, Hepatitis C Antibody Non-Reactive D/C Instructions Discharge Diet: Low fat / Low cholesterol Discharge Activity: Return to Normal Activity Weight Bearing Status: Weight bearing as tolerated Call your doctor if you observe: Fever of 101 or Higher, Shortness of breath, Dizziness, Swelling in the ankles and Chest pain DC O2, CPAP, BIPAP Needs Home O2 Discharge instructions: No DC home with Oxygen: No Meaningful Use Info Meaningful Use Meaningful Use Diagnoses (Choose all that apply): None applicable Ischemic Stroke Statin Dosing Therapy Reference: STATIN DOSE THERAPY REFERENCE: * Patients > 75 years receive moderate or high dose statin therapy. * Patients 75 years or YOUNGER should receive HIGH intensity statin dose unless contraindicated. You will be required to document reason for non-treatment if statin daily dose does not meet guidelines. HIGH DOSE STATIN THERAPY DAILY Atorvastatin > than or = to 40 mg Rosuvastatin > than or = to 20 mg Amlodipine + Atorvastatin > than or = to 2.5/40 mg Ezetimibe + Simvastatin 10/80 mg Simvastatin 80mg Discharge Plan Admission Admit Date/Time: 01/06/25 21:44 Primary Reason for Your Visit: acute alcohol withdrawal Attending Provider: Yesenia Khan Primary Care Provider: Care Physician,No Primary Consulting Providers: Emperatriz Jin Instructions Patient Instructions: Alcohol Addiction, Alcohol Withdrawal: What to Expect Discharge Orders/Prescriptions Prescriptions: No Action NK Referrals / Follow Up: Rodger Moya MD [Non-Staff] - Within 1 Week Care Physician,No Primary [Primary Care Provider] - Disposition Disposition (needs filled in before D/C Order can be placed): Home, Self Care Charges/Coding Visit Charges Inpatient E&M: 94147 Disch Hosp >30min
[2025-01-09 11:36] VITALS: BP 136/97; PULSE 62; PULSE 63; RESP 16; TEMP 36.6; O2SAT 97
--- NOTE | 2025-01-09 13:36 | NURSING ---
a new day transporter phoned, states according to his GPS he is about 1 hr 42 minutes away. He has phone number to call [phone] when he arrives. Pt informed.
--- NOTE | 2025-01-09 16:03 | CHAPLAIN ---
Type of Pastoral Visit ___ Initial Visit _x__ Follow-up Visit ___ On-call Visit ___ General Patient Visit ___ Spiritual Assessment ___ Family Conference ___ Bereavement ___ Rapid Response ___ Code Blue ___ Other (describe below) Pastoral Care Referral From _x__ Patient ___ Family ___ Nurse ___ Physician ___ Assistant Signal Maintainer ___ Supervisor Microwave ___ Other (describe below) Sacrament/Intervention _x__ Active listening ___ Anointing ___ Moravian ___ Bereavement ___ Communion ___ Kayla exploration ___ ___ Life review ___ Prayer ___ Reconciliation ___ Sacrament of Sick _x__ Supportive presence ___ Wedding ___ Other (describe below) Pastoral Comments noticed during rounds that this patient was still in the hospital and waiting for transport to rehab; door was open and pt is waiting for a late lunch to arrive; offered supportive presence, pt is eager to talk and gives explanation of what is next and his hopes for the future; encouragement given to patient to pursue his goals and have hope; pt again expresses appreciation for the time given and the support that happened during his [facility] stay
== END 2025-01-09 15:40 | disposition home or self-care (01) | DRG 897 ==
LOC: ED 21:43 → MS3 22:15
PROVIDERS: Admitting Provider Family Medicine; Emergency Provider Emergency Medicine; Visit Provider Student in an Organized Health Care Education/Training Program
DX: F10.239 Alcohol dependence with withdrawal, unspecified (principal); F17.210 Nicotine dependence, cigarettes, uncomplicated; F17.220 Nicotine dependence, chewing tobacco, uncomplicated; R03.0 Elevated blood-pressure reading, without diagnosis of hypertension; Y90.8 Blood alcohol level of 240 mg/100 ml or more
CPT/HCPCS: 36415; 80048; 80053; 80076; 80307; 82077; 83735; 84100; 85025; 86706; 86803; 87340; 99284; A4216